=== PATIENT | female | born 2000 | race Caucasian/White ===

== ENCOUNTER → 2024-02-17 | Outpatient (CLI) | payer BC ==
--- NOTE | 2024-02-18 08:01 | US ---
EXAMINATION TYPE: US transvaginal DATE OF EXAM: 02/17/2024 COMPARISON: NONE CLINICAL INDICATION: Female, 23 years old with history of N83.202 UNSPECIFIED OVARIAN CYST, LEFT SIDE ; left ovarian cyst 3 weeks ago outside imaging TECHNIQUE: Transvaginal (TV). Transvaginal sonographic images were medically necessary to better a ssess the following anatomy: Ovaries Date of LMP: on Depo x 6 years EXAM MEASUREMENTS: Uterus: 6.8x3.0x3.8 cm Endometrial Stripe: 0.3 cm Right Ovary: 2.5x1.8x3.2 cm Left Ovary: 2.9x2.1x2.4 cm 1. Uterus: Anteverted wnl 2. Endometrium: wnl 3. Right Ovary: wnl 4. Left Ovary: wnl 5. Bilateral Adnexa: Obscured by overlying bowel gas 6. Posterior cul-de-sac: wnl IMPRESSION: No discrete abnormality appreciated.
== END | disposition home or self-care (01) ==
LOC: RADUSWWP 15:26
PROVIDERS: ATTEND Family Medicine
DX: N83.202 Unspecified ovarian cyst, left side (principal)
CPT/HCPCS: 76830